=== PATIENT | male | born 1995 | race Caucasian/White ===

== ENCOUNTER 2022-04-11 11:45 | Emergency (ER) | payer OTHER ==
[~2022-04-11] VITALS: Ht 363.2 cm; Wt 74.8 kg
[~2022-04-11 11:45] MED LIST: ZITHROMAX Z PA250 MG PO; ZYRTEC10 MG PO
[2022-04-11] MEDS ORDERED: OMEPRAZOLE40 MG PO (13:04)
== END 2022-04-11 13:40 | disposition home or self-care (01) ==
LOC: ED 11:45
DX: K21.9 Gastro-esophageal reflux disease without esophagitis (principal)